=== PATIENT | male | born 1945 | race Caucasian/White ===

== ENCOUNTER 2018-06-14 22:09 | Inpatient (IN) | payer OTHER ==
[2018-06-14 23:55] LABS: ADD MAN DIFF? NO
[2018-06-14 23:59] LABS: WHITE BLOOD COUNT 18.6 10^3/ul (4.8-10.8)
[2018-06-14 23:59] LABS: BASOPHIL # 0.1 10^3/ul (0.0-0.1); BASOPHILS % 0.3 % (0.0-2.0); EOSINOPHILS % 0.2 % (0.0-7.0); HEMATOCRIT 36.6 % (42.0-52.0); LYMPHOCYTES # 1.4 10^3/ul (0.8-2.9); LYMPHOCYTES % 7.5 % (15.0-51.0); MEAN CORPUSCULAR HEMOGLOBIN 27.6 pg (29.0-33.0); MEAN CORPUSCULAR HGB CONC 32.8 g/dl (32.0-37.0); MEAN CORPUSCULAR VOLUME 84.1 fl (82.0-101.0); MEAN PLATELET VOLUME 9.9 fl (7.4-10.4); MONOCYTE # 1.4 10^3/ul (0.3-0.9); MONOCYTES % 7.5 % (0.0-11.0); NEUTROPHIL # 15.3 10^3/ul (1.6-7.5); NEUTROPHILS % 82.6 % (39.0-77.0); PLATELET COUNT 235 10^3/UL (140-415); RED BLOOD COUNT 4.35 10^6/ul (4.70-6.10); RED CELL DISTRIBUTION WIDTH 13.1 % (11.5-14.5)
[2018-06-15] MEDS: ACETAMINOPHEN 325 MG TAB PO (00:08)
[2018-06-15] MEDS: PIPER-TAZO 3.375 GM IV (PMX) 100 ML IVPB ×5 (00:08→23:50)
[2018-06-15] MEDS: SODIUM CHLORIDE 0.9% 1L BAG IV* (00:08)
[2018-06-15 00:16] LABS: ANION GAP 11 (5-13)
[2018-06-15 00:18] LABS: INR 1.17; PROTIME 15.1 Sec (11.9-14.9); PT RATIO 1.2
[2018-06-15 00:19] LABS: PARTIAL THROMBOPLASTIN TIME 32.7 Sec (23.0-35.0)
[2018-06-15 00:27] LABS: TROPONIN-I < 0.012 ng/ml (0.000-0.120)
[2018-06-15 00:46] LABS: ADD UMIC YES; UR ASCORBIC ACID NEGATIVE (NEGATIVE); UR BACTERIA FEW /HPF (NONE SEEN); UR BILIRUBIN (Dip) NEGATIVE (NEGATIVE); UR BLOOD (Dip) 2+ mg/dL (NEGATIVE); UR CLARITY CLEAR (CLEAR); UR COLOR YELLOW (YELLOW); UR GLUCOSE (Dip) NEGATIVE (NEGATIVE); UR KETONES (Dip) 1+ mg/dL (NEGATIVE); UR LEUKOCYTE ESTERASE (Dip) NEGATIVE Leu/ul (NEGATIVE); UR MUCUS MANY /HPF (NONE SEEN); UR NITRITE (Dip) NEGATIVE (NEGATIVE); UR RBC 3 /HPF (0-5); UR SPECIFIC GRAVITY (Dip) 1.019 (1.003-1.030); UR TOTAL PROTEIN (Dip) 1+ mg/dl (NEGATIVE); UR UROBILINOGEN (Dip) 1+ mg/dL (NEGATIVE); UR WBC 2 /HPF (0-5)
[2018-06-15 00:55] LABS: BLOOD UREA NITROGEN 15 mg/dl (7-20); CALCIUM 8.6 mg/dl (8.4-10.2); CARBON DIOXIDE 28 mmol/L (21-31); CHLORIDE 97 mmol/L (97-110); CREATININE 0.49 mg/dl (0.61-1.24); GLUCOSE 113 mg/dl (70-220); POTASSIUM 4.2 mmol/L (3.5-5.1); SODIUM 136 mmol/L (135-144)
[2018-06-15] MEDS ORDERED: ONDANSETRON 4 MG INJ IV ×2 (02:00→04:00)
[2018-06-15] MEDS ORDERED: ACETAMINOPHEN 325 MG TAB PO (02:00)
[2018-06-15] MEDS ORDERED: morphine 2 MG INJ IV (04:00)
[2018-06-15] MEDS ORDERED: NACL 0.9% 3 ML SYG IV (04:00)
[2018-06-15] MEDS: DEXTROSE 5%-0.45% NACL 1,000 ML IV ×3 (05:22→17:07)
[2018-06-15 07:20] LABS: ADD MAN DIFF? NO
[2018-06-15 07:28] LABS: WHITE BLOOD COUNT 17.6 10^3/ul (4.8-10.8)
[2018-06-15 07:28] LABS: BASOPHILS % 0.2 % (0.0-2.0); EOSINOPHILS % 0.2 % (0.0-7.0); LYMPHOCYTES # 0.9 10^3/ul (0.8-2.9); LYMPHOCYTES % 4.9 % (15.0-51.0); MEAN CORPUSCULAR HEMOGLOBIN 27.4 pg (29.0-33.0); MEAN CORPUSCULAR HGB CONC 32.4 g/dl (32.0-37.0); MEAN CORPUSCULAR VOLUME 84.8 fl (82.0-101.0); MEAN PLATELET VOLUME 10.4 fl (7.4-10.4); MONOCYTE # 1.3 10^3/ul (0.3-0.9); MONOCYTES % 7.2 % (0.0-11.0); NEUTROPHILS % 85.5 % (39.0-77.0); PLATELET COUNT 226 10^3/UL (140-415); RED BLOOD COUNT 4.01 10^6/ul (4.70-6.10); RED CELL DISTRIBUTION WIDTH 13.3 % (11.5-14.5)
[2018-06-15 07:44] LABS: ALANINE AMINOTRANSFERASE 38 IU/L (13-69); ALBUMIN 2.8 g/dl (3.3-4.9); ALKALINE PHOSPHATASE 90 IU/L (42-121); ANION GAP 8 (5-13); ASPARTATE AMINO TRANSFERASE 25 IU/L (15-46); BILIRUBIN,INDIRECT 0.5 mg/dl (0-1.1); BILIRUBIN,TOTAL 0.5 mg/dl (0.2-1.3); BLOOD UREA NITROGEN 11 mg/dl (7-20); CARBON DIOXIDE 26 mmol/L (21-31); CHLORIDE 102 mmol/L (97-110); CREATININE 0.49 mg/dl (0.61-1.24); GLUCOSE 117 mg/dl (70-220); POTASSIUM 3.5 mmol/L (3.5-5.1); SODIUM 136 mmol/L (135-144); TOTAL PROTEIN 5.9 g/dl (6.1-8.1)
[2018-06-15 07:45] LABS: LACTIC ACID 0.8 mmol/L (0.5-2.0)
[2018-06-15 08:15] LABS: CARCINOEMBRYONIC ANTIGEN 1.9 ng/ml (0.0-5.0)
[2018-06-15] MEDS: FAMOTIDINE 20 MG INJ IV ×2 (08:56→21:00)
[2018-06-15] MEDS: DIATR MEGLU/DIATRIZOATE SODIUM 120 ML BTL PO (15:48)
[2018-06-15] MEDS: SOD CHLORIDE 0.9% 0 ML (16:12)
[2018-06-15] MEDS: IOHEXOL 300MG/ML 150 ML BTL (16:12)
[2018-06-16] MEDS: DEXTROSE 5%-0.45% NACL 1,000 ML IV ×2 (04:16→15:52)
[2018-06-16] MEDS: PIPER-TAZO 3.375 GM IV (PMX) 100 ML IVPB ×4 (05:26→23:22)
[2018-06-16 07:42] LABS: ADD MAN DIFF? NO
[2018-06-16 07:48] LABS: WHITE BLOOD COUNT 15.7 10^3/ul (4.8-10.8)
[2018-06-16 07:48] LABS: BASOPHIL # 0.1 10^3/ul (0.0-0.1); BASOPHILS % 0.3 % (0.0-2.0); EOSINOPHILS # 0.1 10^3/ul (0.0-0.5); EOSINOPHILS % 0.8 % (0.0-7.0); HEMATOCRIT 34.7 % (42.0-52.0); HEMOGLOBIN 11.4 g/dl (14.0-18.0); LYMPHOCYTES # 1.3 10^3/ul (0.8-2.9); LYMPHOCYTES % 8.2 % (15.0-51.0); MEAN CORPUSCULAR HEMOGLOBIN 27.7 pg (29.0-33.0); MEAN CORPUSCULAR HGB CONC 32.9 g/dl (32.0-37.0); MEAN CORPUSCULAR VOLUME 84.4 fl (82.0-101.0); MEAN PLATELET VOLUME 10.2 fl (7.4-10.4); MONOCYTE # 1.3 10^3/ul (0.3-0.9); MONOCYTES % 8.1 % (0.0-11.0); NEUTROPHIL # 12.7 10^3/ul (1.6-7.5); NEUTROPHILS % 80.9 % (39.0-77.0); PLATELET COUNT 233 10^3/UL (140-415); RED BLOOD COUNT 4.11 10^6/ul (4.70-6.10); RED CELL DISTRIBUTION WIDTH 13.4 % (11.5-14.5)
[2018-06-16 07:59] LABS: HEMOGLOBIN A1C 5.3 % (0-5.9)
[2018-06-16 08:08] LABS: ALANINE AMINOTRANSFERASE 36 IU/L (13-69); ALBUMIN 2.8 g/dl (3.3-4.9); ALKALINE PHOSPHATASE 87 IU/L (42-121); ANION GAP 10 (5-13); ASPARTATE AMINO TRANSFERASE 21 IU/L (15-46); BILIRUBIN,INDIRECT 0.4 mg/dl (0-1.1); BILIRUBIN,TOTAL 0.4 mg/dl (0.2-1.3); BLOOD UREA NITROGEN 7 mg/dl (7-20); CALCIUM 8.3 mg/dl (8.4-10.2); CARBON DIOXIDE 30 mmol/L (21-31); CHLORIDE 100 mmol/L (97-110); CREATININE 0.49 mg/dl (0.61-1.24); GLUCOSE 125 mg/dl (70-220); POTASSIUM 3.4 mmol/L (3.5-5.1); SODIUM 140 mmol/L (135-144); TOTAL PROTEIN 5.6 g/dl (6.1-8.1)
[2018-06-16 08:10] LABS: ANION GAP 10 (5-13); BLOOD UREA NITROGEN 7 mg/dl (7-20); CALCIUM 8.3 mg/dl (8.4-10.2); CARBON DIOXIDE 30 mmol/L (21-31); CHLORIDE 100 mmol/L (97-110); CREATININE 0.47 mg/dl (0.61-1.24); GLUCOSE 120 mg/dl (70-220); PHOSPHORUS 3.3 mg/dl (2.5-4.9); POTASSIUM 3.6 mmol/L (3.5-5.1); SODIUM 140 mmol/L (135-144)
[2018-06-16] MEDS: ENOXAPARIN 40 MG/0.4 ML SYG SC (08:16)
[2018-06-16] MEDS: FAMOTIDINE 20 MG INJ IV ×2 (08:16→21:00)
[2018-06-16] MEDS: IOHEXOL 14.3 MG(I)/ML (ADULT) BTL PO (13:08)
[2018-06-16] MEDS: SOD CHLORIDE 0.9% 100 ML (16:28)
[2018-06-16] MEDS: IOHEXOL 100 ML (16:29)
[2018-06-17] MEDS: DEXTROSE 5%-0.45% NACL 1,000 ML IV (02:26)
[2018-06-17] MEDS: PIPER-TAZO 3.375 GM IV (PMX) 100 ML IVPB ×2 (05:27→11:42)
[2018-06-17 06:55] LABS: IRON 37 ug/dl (35-150)
[2018-06-17 07:05] LABS: % IRON SATURATION 17 % SAT (22-52); TOTAL IRON BINDING CAPACITY 214 ug/dl (241-421)
[2018-06-17] MEDS: FAMOTIDINE 20 MG INJ IV (08:16)
[2018-06-17] MEDS: ENOXAPARIN 40 MG/0.4 ML SYG SC (08:17)
== END 2018-06-17 13:25 | disposition left against medical advice (07) | DRG 392 ==
LOC: E/R 22:09 → PP2 06-15 01:39
DX: R10.31 Right lower quadrant pain (principal); N20.0 Calculus of kidney; K44.9 Diaphragmatic hernia without obstruction or gangrene; D64.9 Anemia, unspecified; E88.09 Other disorders of plasma-protein metabolism, not elsewhere classified; D50.9 Iron deficiency anemia, unspecified; E87.6 Hypokalemia; K52.9 Noninfective gastroenteritis and colitis, unspecified
CPT/HCPCS: 36415; 71045; 74176; 74177; 80048; 80053; 81001; 82378; 83036; 83540; 83605; 83735; 84100; 84443; 84484; 85025; 85610; 85730; 87040; 87045; 87086; 93005; 96374; 99291-25